=== PATIENT | male | born 1965 | race Hispanic/Latino ===

== ENCOUNTER 2019-03-27 21:33 | Emergency (ER) | payer OTHER ==
[2019-03-28] MEDS ORDERED: BENADRYL PO ONE (02:11)
[2019-03-28] MEDS ORDERED: REGLAN PO ONE (02:11)
[2019-03-28] MEDS ORDERED: DECADRON IM ONE (02:11)
--- NOTE | 2019-03-28 02:48 | Emergency Department Report ---
ED Rash HPI - HPI Chief Complaint: Extremity Injury, Lower Stated Complaint: STUNG BY JELLYFISH Time Seen by Provider: 03/28/19 02:11 Duration: 5 Days Location: Upper Extremities, Lower Extremities Suspected Cause: Other (Jelly fish sting ) Rash Symptoms: Yes Itching, No Facial Swelling, No Tongue/Oral Swelling, No Breathing Difficulties, No Choking Sensation, No Wheezing/Dyspnea, No Peeling, No Blistering, No Fever, No Lightheaded, No Malaise, No Myalgias Severity: moderate (patient states he was stung by a jellyfish 6 days ago now a pruritic rash to left upper extremity right lower extremity no fevers no chills no weeping ) Other History: pt states stung by jelly fish 6 days ago , now with rash red raised papular to bilat upper and right lower extremity. ED Review of Systems ROS: Stated complaint: STUNG BY JELLYFISH Other details as noted in HPI Constitutional: denies: chills, fever Eyes: denies: eye pain, eye discharge, vision change ENT: denies: ear pain, throat pain Respiratory: denies: cough, shortness of breath, wheezing Cardiovascular: denies: chest pain, palpitations Endocrine: no symptoms reported Gastrointestinal: denies: abdominal pain, nausea, diarrhea Genitourinary: denies: urgency, dysuria Musculoskeletal: denies: back pain, joint swelling, arthralgia Skin: rash. denies: lesions Neurological: denies: headache, weakness, paresthesias Psychiatric: denies: anxiety, depression Hematological/Lymphatic: denies: easy bleeding, easy bruising ED Past Medical Hx - Past Medical History Previous Medical History?: Yes - Surgical History Past Surgical History?: Yes Additional Surgical History: Right knee. Right and left rotator cuffs. Tonsillectomy - Social History Smoking Status: Former Smoker Substance Use Type: None - Medications Home Medications: Home Medications Medication Instructions Recorded Confirmed Last Taken Type EPINEPHrine [Epipen 2-Nick] 0.3 mg IM PRN PRN #1 each 03/28/19 Unknown Rx Metoclopramide [Reglan] 10 mg PO ACHS 7 Days #30 tablet 03/28/19 Unknown Rx Triamcinolone Aceton 0.1% (Nf) 1 applic TP BID 14 Days #1 tube 03/28/19 Unknown Rx [Kenalog (NF)] diphenhydrAMINE [Benadryl CAP] 25 mg PO Q6HR 7 Days #30 capsule 03/28/19 Unknown Rx predniSONE [Deltasone] 40 mg PO QDAY 5 Days #10 tab 03/28/19 Unknown Rx Rash Exam - Exam General: Vital signs noted. No distress. Alert and acting appropriately. HEENT: No Periorbital Edema, No Conjuctival Injection, No Chemosis, No Perioral Edema, No Tongue Edema, No Uvular Edema, No Compromised Airway, No Drooling Lungs: Yes Good Air Exchange, No Wheezes, No Ronchi, No Stridor, No Cough, No Labored Respirations, No Retractions, No Use of Accessory Muscles, No Other Abnormal Lung Sounds Heart: Yes Regular, No Murmur Skin: Yes Urticarial Rash, Yes Maculopapular Rash, Yes Erythema, No Morbilliform rash, No Bulla(e), No Excoriations, No Weeping, No Tenderness, No Edema, No Encrustations Other: Positive: Abdomen Normal, Neurologic Normal, Musculoskeletal Normal ED Course Vital Signs 03/27/19 23:09 Temperature 98.2 F Pulse Rate 102 H Respiratory 18 Rate Blood Pressure 165/98 O2 Sat by Pulse 98 Oximetry ED Medical Decision Making - Medical Decision Making This is an allergic dermatitis plan prednisone Benadryl Reglan triamcinolone ointment follow up PCP in 2-3 days patient verbalizes agreement and understanding with same patient will follow up with PCP in 2 days patient and given EpiPen Teaching verbalized agreement and understanding with same patient will be DC'd to home in stable condition at this time patient is alert oriented 3 and respiratory was steady gait lung sounds are clear throughout there is no respiratory distress Critical care attestation.: If time is entered above; I have spent that time in minutes in the direct care of this critically ill patient, excluding procedure time. ED Disposition Clinical Impression: Allergic dermatitis Disposition: DC-01 TO HOME OR SELFCARE Is pt being admited?: No Does the pt Need Aspirin: No Condition: Stable Instructions: Contact Dermatitis (ED) Prescriptions: diphenhydrAMINE [Benadryl CAP] 25 mg PO Q6HR 7 Days #30 capsule predniSONE [Deltasone] 40 mg PO QDAY 5 Days #10 tab EPINEPHrine [Epipen 2-Nick] 0.3 mg IM PRN PRN #1 each PRN Reason: severe allergic reaction Triamcinolone Aceton 0.1% (Nf) [Kenalog (NF)] 1 applic TP BID 14 Days #1 tube Metoclopramide [Reglan] 10 mg PO ACHS 7 Days #30 tablet Referrals: FAN GOLDSMITH MD [Primary Care Provider] - 3-5 Days CARMEN HERRERA MD [Staff Physician] - 3-5 Days Forms: Work/School Release Form(ED) Time of Disposition: 02:56
[2019-03-28 03:17] VITALS: BP 134/78
== END 2019-03-28 03:19 | disposition home or self-care (01) ==
LOC: ED 21:33
DX: L23.9 Allergic contact dermatitis, unspecified cause (principal); Z87.891 Personal history of nicotine dependence
CPT/HCPCS: 99282; J1100